=== PATIENT | female | born 1960 | race Caucasian/White ===

== ENCOUNTER 2018-12-02 19:17 | Emergency (ER) | payer BC, OTHER ==
[~2018-12-02] VITALS: Ht 165.1 cm; Wt 66.0 kg
[2018-12-02 19:29] VITALS: Ht 165.1 cm; Wt 66.0 kg
[2018-12-02] MEDS ORDERED: DIPHTH/TET/ACEL PERTUSS (ADULT) 0.5 ML VIAL IM* ONE (20:30)
[2018-12-02] MEDS ORDERED: LIDOCAINE 1% (MPF) 5 ML VIAL INFIL ONE (20:30)
--- NOTE | 2018-12-02 20:30 | ERD ---
ER Documentation Chief Complaint Chief Complaint R thumb lac today while cooking HPI 58-year-old female presents with laceration to the base of her right thumb that was sustained today in the kitchen when she was cooking on accident. She is right-hand dominant. No numbness or tingling or loss of range of motion. Unsure last tetanus vaccination. ROS All systems reviewed and are negative except as per history of present illness. Allergies Allergies: Coded Allergies: No Known Allergy (Unverified , 12/02/18) PMhx/Soc History of Surgery: Yes (TUMOR REMOVAL ) Hx Alcohol Use: No Hx Substance Use: No Hx Tobacco Use: No Smoking Status: Never smoker FmHx Family History: No diabetes Physical Exam Vitals Vital Signs Date Temp Pulse Resp B/P (MAP) Pulse Ox O2 O2 Flow FiO2 Time Delivery Rate 12/02/18 96.9 61 18 132/74 98 19:29 (93) Physical Exam Const: No acute distress Head: Atraumatic Eyes: Normal Conjunctiva ENT: Normal External Ears, Nose and Mouth. Neck: Full range of motion. No meningismus. Resp: Clear to auscultation bilaterally Cardio: Regular rate and rhythm, no murmurs Hand -right Skin: On the palmar surface at the base of the thumb there is a small 1 cm laceration Compartments: Soft Sensation: Intact shoulder/pinky/middle finger/thumb web space Bones: Nontender Snuffbox: Nontender Joints: No effusion Wrist: Flex/Ext: Normal Uln/Radial deviation: Normal Pron/Supination Normal Finger: Flex/Ext: Normal Add/abd: Normal Thumb: Flex/Ext: Normal Opposition: Normal Thumbs up: Normal Results 24 hrs Current Medications Medications Dose Sig/Luigi Start Time Status Last (Trade) Ordered Route PRN Stop Time Admin Dose Reason Admin Lidocaine 5 ml ONCE ONCE 12/02/18 (Xylocaine INFIL 20:30 1% (Mpf)) 12/02/18 20:31 Diphtheria/ 0.5 ml ONCE ONCE 12/02/18 12/02/18 Tetanus/Acell IM* 20:30 20:18 Pertussis 12/02/18 20:31 (Adacel) Procedures/MDM Laceration Repair by me: Anesthesia: 1% lidocaine locally Location: Base of thumb Tendon/Joint/Nerves: No injury Foreign body: None detected after copious irrigation and exploration Technique: Simple Interrupted Sutures Complexity: No subcutaneous sutures/mucosal repair/edge excision Post Closure Length: 1 cm Patient's bleeding was easily controlled in the department and there is no indication of anemia. No evidence of compartment syndrome, neurologic injury, vascular injury, open joint, tendon laceration, or foreign body. Patient is appropriate for outpatient follow up. 48 hour wound check. Scar minimization instructions given. Tetanus vaccination given. Patient counseled regarding my diagnostic impression and care plan. Prior to discharge all questions answered. Pt agrees with treatment plan and understands strict return precautions. Pt is instructed to follow up with primary care provider within 24-48 hours. Precautionary instructions provided including instructions to return to the ER if not improving or for any worsening or changing symptoms or concerns. Departure Diagnosis: Primary Impression: Hand laceration Condition: Stable Patient Instructions: Laceration, Extrem (Suture, Staple, Or Tape) Additional Instructions: Follow up in 2 days in your clinic for wound check. SARA AUSTIN PA-C Dec 02, 2018 20:30
[2018-12-02 20:32] VITALS: BP 122/68; PULSE 80; RESP 16
== END 2018-12-02 20:33 | disposition home or self-care (01) ==
LOC: FTE 19:17
DX: S61.011A Laceration without foreign body of right thumb without damage to nail, initial encounter (principal); X58.XXXA Exposure to other specified factors, initial encounter; Y92.000 Kitchen of unspecified non-institutional (private) residence as the place of occurrence of the external cause; Z23 Encounter for immunization
CPT/HCPCS: 90471; 90715